=== PATIENT | female | born 1990 | race Caucasian/White ===

== ENCOUNTER 2022-08-22 08:07 | Day surgery (SDC) | payer MEDICAID, OTHER ==
[~2022-08-22] VITALS: Ht 180.3 cm; Wt 86.8 kg
[2022-08-22 08:33] LABS: HCG,QUAL RESULT NEGATIVE (NEGATIVE)
[2022-08-22] MEDS ORDERED: MEPERIDINE 100 MG INJ. 100 MG/ML VIAL ONE (11:12)
[2022-08-22] MEDS ORDERED: MIDAZOLAM HCL 5 MG/5 ML VIAL ONE ×2 (11:12→11:37)
[2022-08-22 13:58] VITALS: BP_SYST 105
== END 2022-08-22 13:15 | disposition home or self-care (01) ==
LOC: SDS 08:07 → SMU 08:09 → SDS 13:15
PROVIDERS: ATTEND Internal Medicine Gastroenterology
DX: K21.9 Gastro-esophageal reflux disease without esophagitis (principal); K31.7 Polyp of stomach and duodenum; K29.50 Unspecified chronic gastritis without bleeding; Z20.822 Contact with and (suspected) exposure to COVID-19
CPT/HCPCS: 43251; 87081; 84703; 36415; 43239; 88305; 88312; 88313; 99152; 87426; G0378; J2250; J2175